=== PATIENT | female | born 1955 | race Caucasian/White ===

== ENCOUNTER 2017-04-28 01:52 | Emergency (ER) | payer OTHER ==
[2017-04-28] MEDS ORDERED: LIDOCAINE/EPI 2% 1:200,000 10 ML VIAL ONE (02:22)
[2017-04-28] MEDS ORDERED: ACETAMINOPHEN 325 MG TABLET PO ONE (02:54)
--- NOTE | 2017-04-28 03:22 | CT REPORT ---
HISTORY: Fall. COMPARISON: None. TECHNIQUE: Axial non-contrast images obtained from skull vertex through foramen magnum. Dose reduction technique was utilized. FINDINGS: There is age appropriate atrophy. There is slightly decreased attenuation in the periventricular whi te matter, consistent with chronic small vessel ischemic change. There is no hemorrhage. There is n o hydrocephalus. No mass lesion is identified. Rojas white differentiation adequate, there is no inf arction. No midline shift is identified. The paranasal sinuses are clear. There is stapled lacerati on over the midline parietal region near the vertex. IMPRESSION: 1. No CT evidence of an acute intracranial abnormality. 2. Slightly decreased attenuation in the periventricular white matter is nonspecific but commonly se en with chronic small vessel ischemic change. 3. Stapled laceration over the midline parietal region near the vertex. Final Electronic Signature: This report was electronically signed by Johnny Story MD on 7 3:19 AM. varun /
--- NOTE | 2017-04-28 03:35 | ER PHYSICIAN DOCUMENTATION ---
Physician Documentation [facility] Name:Kizzy Kirk Age:61 yrs Sex:Female :1955 Arrival Date:04/28/2017 Time:01:52 Bed6 Private MD: El Jackson Disposition: 04/28 18:24 Chart complete. tl1 Disposition: 04/28/17 02:28 Discharged to Home/Self Care. Impression: Head Injury, Head Laceration. - Condition is Good. - Discharge Instructions: HEAD INJURY, No Wake-Up (Adult), SCALP LACERATION Stitches or [place] - LACERATION, Scalp. - Medical Reconciliation form form. - Follow up: Private Physician; When: 7 - 10 days; Reason: Staple/Suture removal. - Problem is new. - Symptoms have improved. HPI: 02:05 This 61 yrs old Female presents to ER via Private Vehicle with complaints of tl1 Head Injury-Adult. 02:05 The patient or guardian reports a laceration, 5 cm(s), clean. tl1 02:05 Context of injury: The problem was sustained at home, resulted from a fall, while tl1 walking. Onset: The symptom(s)/episode began/occurred suddenly, 2 hour(s) ago. Associated signs and symptoms: Loss of consciousness: This patient did not experience any loss of consciousness. Pertinent positives: patient admits to or smells of alcohol consumption, headache, injury, Pertinent negatives: incontinence, nausea, neck pain, seizure, shortness of breath, vomiting, weakness in extremities, generalized weakness. Severity of symptoms: At their worst the symptoms were moderate, in the emergency department the symptoms have improved. Intracranial bleed risk factors: alcohol use. The patient has not experienced similar symptoms in the past. She had much more wine tonight than usual, about 8 glasses and was pretty intoxicated. On her way to bed, while outside, with no one around, she stumbled and fell back striking her left occiput on some [place]. She says she did not loose consciousness, and did not realize she had a scalp laceration. She went to bed, then noticed some blood about 2 hours or so after the accident, when she woke up. She could feel her 5 cm laceration and had her son bring her to the ED for evaluation. When she arrived here she denied a h/a, but then, just prior to d/c, she complained of a moderate h/a, w/o n/v or focal neuro symptoms. Denied neck pain or focal weakness, numbness or tingling.. Historical: - Allergies: No known drug Allergies; - Home Meds: 1. None - PMHx: NONE; - PSHx: HYSTERECTOMY; APPENDECTOMY; wrist surgery; - Tetanus: < 10 years. - Ebola Screening: : No symptoms or risks identified at this time. . - Immunization history: Flu Vaccine < 1 year. - Social history: Smoking status: Patient uses tobacco products, current every day smoker. ROS: 02:05 Eyes: Negative for blurry vision, pain, photophobia, redness, visual disturbance, tl1 vision loss. 02:05 ENT: Negative for injury or acute deformity. 02:05 All other systems are negative. Exam: 02:05 Constitutional: This is a well developed, well nourished patient who is awake, alert, tl1 and in no acute distress. 02:05 Head/face: Exam is negative for cobb signs, raccoon eyes, Noted is a laceration(s), that is deep, that is linear, 5 cm(s), of the left side of the back of head, swelling, tenderness, of the left side of the back of head. 02:05 Eyes: Periorbital structures: appear normal, Pupils: equal, round, and reactive to light and accomodation. 02:05 ENT: Exam is negative for acute changes. 02:05 Neck: External neck: is normal, C-spine: appears grossly normal, vertebral tenderness, Thyroid: appears normal, Lymph nodes: no appreciated lymphadenopathy. 02:05 Chest/axilla: Palpation: is normal, no crepitus, no tenderness. 02:05 Cardiovascular: Rate: normal, Rhythm: regular, Heart sounds: normal, Edema: is not appreciated, JVD: is not appreciated. 02:05 Respiratory: the patient does not display signs of respiratory distress, Respirations: normal, Breath sounds: are normal. 02:05 Abdomen/GI: Palpation: abdomen is soft and non-tender. 02:05 : CVA tenderness. 02:05 Musculoskeletal/extremity: Exam is negative for acute changes. 02:05 Skin: 02:05 Neuro: Orientation: is normal, Mentation: is normal, Memory: is normal, Cranial nerves: grossly normal, Motor: moves all fours, Gait: is steady, at a normal pace, without difficulty, appropriate for age, Deep tendon reflexes are 2+ (normal) in the right brachioradialis, right patellar, left brachioradialis and left patellar. Vital Signs: 02:05 BP 137 / 68; Pulse 80; Resp 20; Temp 98.2; Pulse Ox 95% on R/A; Weight 72.57 kg; Height mv 5 ft. 8 in. (172.72 cm); Pain 0/10; 03:33 BP 141 / 62; Pulse 82; Resp 18; Pulse Ox 94% ; bw2 02:05 Body Mass Index 24.33 (72.57 kg, 172.72 cm) mv [place] Coma Score: 01:59 Eye Response: spontaneous(4). Verbal Response: oriented(5). Motor Response: obeys mv commands(6). Total: 15. 02:05 Eye Response: spontaneous(4). Verbal Response: oriented(5). Motor Response: obeys tl1 commands(6). Total: 15. 02:20 Eye Response: spontaneous(4). Verbal Response: oriented(5). Motor Response: obeys tl1 commands(6). Total: 15. Trauma Score (Adult): 02:24 Eye Response: spontaneous(1); Verbal Response: oriented(1); Motor Response: obeys bw2 commands(2); Systolic BP: > 89 mm Hg(4); Respiratory Rate: 10 to 29 per min(4); [place] Score: 15; Trauma Score: 12 Laceration: 02:05 Wound Repair of 5cm ( 2.0in ) subcutaneous laceration to left parietal area. Linear tl1 shaped.. Hemostasis noted.. Distal neuro/vascular/tendon intact. Anesthesia: Wound infiltrated with 5 mls of 2% lidocaine w/ Epi, Wound infiltrated with 5 mls of 2% lidocaine. Wound prep: Extensive cleansing, Copious irrigation. Skin closed with 8 1-0 [place] using Staple gun. Dressed with Bacitracin, Open to air. Patient tolerated well. MDM: 02:05 Patient medically screened. tl1 02:20 Differential diagnosis: Contusion of Hematoma on Laceration of Intracranial bleed- tl1 Concussion cerebral contusion. Data reviewed: vital signs, nurses notes, radiologic studies, CT scan, and as a result, I will discharge patient. Counseling: I had a detailed discussion with the patient and/or guardian regarding: the historical points, exam findings, and any diagnostic results supporting the discharge/admit diagnosis, radiology results, the need for outpatient follow up, to return to the emergency department if symptoms worsen or persist or if there are any questions or concerns that arise at home. Response to treatment: the patient's symptoms have mildly improved after treatment, and as a result, I will discharge patient. 04/28 03:24 Order name: CAT SCAN; HEAD W/O CON [id number]; Complete Time: 18:24 EDMS 04/28 18:24 Interpretation: NAD. SEE NOTE. tl1 Dispensed Medications: 02:30 Drug: Lidocaine-Epinephrine -2 % (1:100,000) 10 ml; Route: Infiltration; Site: wound; bw2 03:18 Follow up: Response: No adverse reaction; Pain is decreased bw2 02:44 Drug: Tylenol 975 mg; Route: PO; bw2 03:18 Follow up: Response: No adverse reaction bw2 Signatures: El Madden MD MD tl1 grace cho Beth bw2
--- NOTE | 2017-04-28 03:35 | ER NURSING DOCUMENTATION ---
Nurse's Notes [facility] Name:Kizzy Kirk Age:61 yrs Sex:Female :1955 Arrival Date:04/28/2017 Time:01:52 Bed6 Private MD: Diagnosis:Head Injury;Head Laceration Presentation: 04/28 01:59 Presenting complaint: Patient states: had some wine tonight and fell and hit head on mv patio. Transition of care: Home. Mechanism of Injury: The problem was sustained at home, resulted from a fall, from a standing position. Risk considerations: no risks identified. 01:59 Method Of Arrival: Private Vehicle mv 01:59 Acuity: SHANTELL 3 mv Triage Assessment: 02:03 General: Appears in no apparent distress, Behavior is anxious, cooperative, Smells of mv alcohol. Pain: Denies pain. Neuro: Level of Consciousness is awake, alert, Oriented to person, place, time, event, [employer] are equal bilaterally Moves all extremities. Denies headache. 02:25 Neuro: Reports denies symptoms . bw2 Historical: - Allergies: No known drug Allergies; - Home Meds: 1. None - PMHx: NONE; - PSHx: HYSTERECTOMY; APPENDECTOMY; wrist surgery; - Tetanus: < 10 years. - Ebola Screening: : No symptoms or risks identified at this time. . - Immunization history: Flu Vaccine < 1 year. - Social history: Smoking status: Patient uses tobacco products, current every day smoker. Screenin:11 Infectious Disease Risk None. Abuse screen: Denies threats or abuse. Nutritional mv screening: No deficits noted. Assessment: 02:08 Injury Description: Laceration sustained to scalp is not bleeding, was sustained 2-4 mv hours ago. 02:24 See Triage Assessment done by same RN. Neuro: No deficits noted. Denies weakness bw2 blurred vision dizziness, difficulty swallowing, paresthesias numbness headache photophobia diplopia. 02:42 Reassessment: while discharging pt she admitted that she was not truthful about her bw2 pain. pt states shes does have a headache. MD notified. . Vital Signs: 02:05 BP 137 / 68; Pulse 80; Resp 20; Temp 98.2; Pulse Ox 95% on R/A; Weight 72.57 kg; Height mv 5 ft. 8 in. (172.72 cm); Pain 0/10; 03:33 BP 141 / 62; Pulse 82; Resp 18; Pulse Ox 94% ; bw2 02:05 Body Mass Index 24.33 (72.57 kg, 172.72 cm) mv [place] Coma Score: 01:59 Eye Response: spontaneous(4). Verbal Response: oriented(5). Motor Response: obeys mv commands(6). Total: 15. 02:05 Eye Response: spontaneous(4). Verbal Response: oriented(5). Motor Response: obeys tl1 commands(6). Total: 15. 02:20 Eye Response: spontaneous(4). Verbal Response: oriented(5). Motor Response: obeys tl1 commands(6). Total: 15. Trauma Score (Adult): 02:24 Eye Response: spontaneous(1); Verbal Response: oriented(1); Motor Response: obeys bw2 commands(2); Systolic BP: > 89 mm Hg(4); Respiratory Rate: 10 to 29 per min(4); Aung Score: 15; Trauma Score: 12 ED Course: 01:57 Patient arrived in ED. ma1 02:01 Miya Iniguez is Primary Nurse. bw2 02:01 Triage completed. mv 02:05 El Madden MD is Attending Physician. tl1 02:05 Notified ED Physician of patient's arrival and chief complaint. Dr. Madden notified. mv 02:25 Valuables Remains with patient. bw2 02:26 Wound care to laceration located on scalp was Irrigation Normal Saline Patient bw2 tolerated well. Administered Medications: 02:30 Drug: Lidocaine-Epinephrine -2 % (1:100,000) 10 ml; Route: Infiltration; Site: wound; bw2 03:18 Follow up: Response: No adverse reaction; Pain is decreased bw2 02:44 Drug: Tylenol 975 mg; Route: PO; bw2 03:18 Follow up: Response: No adverse reaction 2 Outcome: 02:28 Discharge ordered by . tl1 03:33 Discharged to home ambulatory, with friend. bw2 03:33 Condition: good 03:33 Discharge Assessment: Patient awake, alert and oriented x 3. No cognitive and/or functional deficits noted. Patient verbalized understanding of disposition instructions. 03:33 Discharge instructions given to patient, Instructed on discharge instructions, follow up and referral plans. Demonstrated understanding of instructions. 03:34 Patient left the ED. bw2 04/29 10:10 Discharge F/U Call: Unable to reach: non-working number lc Signatures: Dionna Sena, TAVON RN trevor Cazares, El Luis MD MD tl1 grace cho Beth bw2 Rocio Montoya [facility]
== END 2017-04-28 03:35 | disposition home or self-care (01) ==
LOC: ER 01:52
DX: S01.01XA Laceration without foreign body of scalp, initial encounter (principal); R51 Headache; W01.0XXA Fall on same level from slipping, tripping and stumbling without subsequent striking against object, initial encounter; Y92.89 Other specified places as the place of occurrence of the external cause; Y93.01 Activity, walking, marching and hiking; F10.929 Alcohol use, unspecified with intoxication, unspecified; F17.210 Nicotine dependence, cigarettes, uncomplicated
CPT/HCPCS: 12032; 70450; 99283